=== PATIENT | female | born 1965 | race Caucasian/White ===

== ENCOUNTER 2018-06-15 08:09 | Emergency (ER) | payer OTHER ==
[~2018-06-15] VITALS: Ht 160 cm; Wt 83.9 kg
[2018-06-15] MEDS ORDERED: CEFDINIR300 MG PO (08:21)
[2018-06-15] MEDS ORDERED: DAYTIME COLD &237 ML PO (08:22)
[2018-06-15] MEDS ORDERED: NYQUIL (08:22)
[2018-06-15] MEDS ORDERED: TESSALON PERLE100 MG PO (08:22)
[2018-06-15 08:43] LABS: ABSOLUTE NEUTROPHILS 6.1 thou/uL (1.4-8.2); BASOPHILS 0.6 % (0.0-2.0); EOSINOPHILS 0.5 % (0.0-3.0); HEMATOCRIT 34.5 % (37.0-47.0); HEMOGLOBIN 11.9 gm/dL (12.0-15.0); LYMPHOCYTES 24.7 % (24.0-44.0); MCH 31.3 pg (26.0-34.0); MCHC 34.4 g/dL (28.0-37.0); MCV 90.8 fL (80.0-100.0); MONOCYTES 8.7 % (1.0-8.0); PLATELET COUNT 319 thou/uL (150-400); POLYS 65.5 % (36.0-66.0); RDW 12.6 % (10.5-14.5); WBC 9.3 thou/uL (4.0-11.0)
[2018-06-15 08:48] LABS: CALCIUM 9.6 mg/dL (8.5-10.1); CREATININE 0.7 mg/dL (0.6-1.0); POTASSIUM 3.7 mmol/L (3.5-5.1)
[2018-06-15] MEDS ORDERED: VENTOLIN HFA 1818 GM INH (12:14)
[2018-06-15] MEDS ORDERED: PREDNISONE 20 M20 MG PO (12:14)
[2018-06-15 12:29] VITALS: BP 111/61
== END 2018-06-15 12:50 | disposition home or self-care (01) ==
LOC: ER 08:09
PROVIDERS: Emergency Medicine
DX: J40 Bronchitis, not specified as acute or chronic (principal); B34.9 Viral infection, unspecified